=== PATIENT | male | born 1970 | race Caucasian/White ===

== ENCOUNTER 2022-02-21 11:45 | Inpatient (IN) | payer OTHER ==
[2022-02-21 15:48] VITALS: BMI 20.9
[2022-02-21] MEDS ORDERED: ACETAMINOPHEN 325 MG TABLET (FP) PO PRN (16:58)
[2022-02-21] MEDS ORDERED: IBUPROFEN 400 MG TABLET (FP) PO PRN (16:58)
[2022-02-21] MEDS ORDERED: MAG HYDROX/AL HYDROX/SIMETH 30 ML UNIT-DOSE CUP PO PRN (16:58)
[2022-02-21] MEDS ORDERED: MAGNESIUM HYDROX 2400MG/30ML ORAL SUSPENSION 30 ML CUP PO PRN (16:58)
[2022-02-21] MEDS ORDERED: LOPERAMIDE HCL 2 MG CAPSULE PO PRN (16:58)
[2022-02-21] MEDS ORDERED: MAGNESIUM CITRATE 300 ML BOTTLE PO PRN (16:58)
[2022-02-21] MEDS ORDERED: guaiFENesin 200 MG/10 ML 10 ML UNIT-DOSE CUPS PO PRN (16:58)
[2022-02-21] MEDS ORDERED: P-EPHED 60MG/TRIPROLIDI 2.5MG TABLET PO PRN (16:58)
[2022-02-21] MEDS ORDERED: TUBERCULIN PPD 5 TU/0.1ML VIAL ID ONE (19:08)
[2022-02-21] MEDS: THIAMINE HCL 100 MG TABLET (FP) PO SCH (21:58)
[2022-02-21] MEDS: BACITRACIN 0.9 GM PACKET TP SCH (21:58)
[2022-02-21] MEDS: hydrOXYzine PAMOATE 25 MG CAPSULE (FP) PO PRN (21:58)
[2022-02-22] MEDS: BACITRACIN 0.9 GM PACKET TP SCH ×2 (09:51→21:15)
[2022-02-22] MEDS: PRENATAL VITAMINS W/ FOLIC ACID TABLET (FP) PO SCH (09:51)
[2022-02-22] MEDS: BICTEGRAV/EMTRICIT/TENOFOV (BIKTARVY) 50-200-25 MG TABLET PO SCH (09:51)
[2022-02-22 10:17] LABS: HEMATOCRIT 44.7 % (35.4-49); HEMOGLOBIN 14.8 GM/dL (11.7-16.9); MCH 29.8 pg (25.7-33.7); MCHC 33.1 g/dl (32.0-35.9); MEAN CELL VOLUME 90.2 fl (80-96); MEAN PLT VOLUME 8.7 fl (7.5-11.1); PLATELET COUNT 244 10^3/uL (134-434); RBC 4.95 M/mm3 (4.00-5.60); RDW 14.9 % (11.9-15.9); WHITE BLOOD COUNT 6.1 K/mm3 (4.0-10.0)
[2022-02-22 10:18] LABS: CALCIUM 9.6 mg/dL (8.5-10.1)
[2022-02-22 10:19] LABS: ALBUMIN 3.6 g/dl (3.4-5.0)
[2022-02-22 10:23] LABS: BILIRUBIN,TOTAL 0.3 mg/dL (0.2-1); TOT PROT 6.9 g/dl (6.4-8.2)
[2022-02-22 10:39] LABS: SYPHILIS W/ RPR CONF NON-REACTIVE (NONREACTIVE)
[2022-02-22] MEDS: MELATONIN 5 MG TABLETS PO PRN (21:15)
[2022-02-22] MEDS: hydrOXYzine PAMOATE 25 MG CAPSULE (FP) PO PRN (21:15)
[2022-02-22] MEDS: THIAMINE HCL 100 MG TABLET (FP) PO SCH (21:15)
[2022-02-23] MEDS: BACITRACIN 0.9 GM PACKET TP SCH ×2 (09:42→21:25)
[2022-02-23] MEDS: PRENATAL VITAMINS W/ FOLIC ACID TABLET (FP) PO SCH (09:42)
[2022-02-23] MEDS: BICTEGRAV/EMTRICIT/TENOFOV (BIKTARVY) 50-200-25 MG TABLET PO SCH (09:42)
[2022-02-23] MEDS: MELATONIN 5 MG TABLETS PO PRN (21:25)
[2022-02-23] MEDS: THIAMINE HCL 100 MG TABLET (FP) PO SCH (21:25)
[2022-02-24] MEDS: PRENATAL VITAMINS W/ FOLIC ACID TABLET (FP) PO SCH (09:44)
[2022-02-24] MEDS: BICTEGRAV/EMTRICIT/TENOFOV (BIKTARVY) 50-200-25 MG TABLET PO SCH (09:44)
[2022-02-24] MEDS: BACITRACIN 0.9 GM PACKET TP SCH ×2 (09:44→21:38)
[2022-02-24 11:14] LABS: EPI CELLS 3 /uL (0-25.1); HYALINE CASTS 0 /uL (0-3.1); URINE APPEARANCE CLEAR; URINE BACTERIA 6 /uL (0-1359); URINE BILIRUBIN NEGATIVE (NEGATIVE); URINE COLOR YELLOW; URINE GLUCOSE (UA) NEGATIVE (NEGATIVE); URINE KETONE NEGATIVE (NEGATIVE); URINE LEUK ESTERASE TRACE (NEGATIVE); URINE NITRITE NEGATIVE (NEGATIVE); URINE PROTEIN NEGATIVE (NEGATIVE); URINE RBC 1 /uL (0-23.9); URINE UROBILINOGEN 0.2 mg/dL (0.2-1.0); URINE WBC 16 /uL (0-25.8)
[2022-02-24] MEDS: THIAMINE HCL 100 MG TABLET (FP) PO SCH (21:37)
[2022-02-24] MEDS: hydrOXYzine PAMOATE 25 MG CAPSULE (FP) PO PRN (23:14)
[2022-02-24] MEDS: MELATONIN 5 MG TABLETS PO PRN (23:14)
[2022-02-25] MEDS: PRENATAL VITAMINS W/ FOLIC ACID TABLET (FP) PO SCH (09:41)
[2022-02-25] MEDS: BACITRACIN 0.9 GM PACKET TP SCH ×2 (09:41→21:11)
[2022-02-25] MEDS: BICTEGRAV/EMTRICIT/TENOFOV (BIKTARVY) 50-200-25 MG TABLET PO SCH (09:41)
[2022-02-25] MEDS: THIAMINE HCL 100 MG TABLET (FP) PO SCH (21:10)
[2022-02-25] MEDS: MELATONIN 5 MG TABLETS PO PRN (21:10)
[2022-02-25] MEDS: hydrOXYzine PAMOATE 25 MG CAPSULE (FP) PO PRN (21:11)
[2022-02-26] MEDS: PRENATAL VITAMINS W/ FOLIC ACID TABLET (FP) PO SCH (09:48)
[2022-02-26] MEDS: BACITRACIN 0.9 GM PACKET TP SCH ×2 (09:48→21:14)
[2022-02-26] MEDS: BICTEGRAV/EMTRICIT/TENOFOV (BIKTARVY) 50-200-25 MG TABLET PO SCH (09:48)
[2022-02-26] MEDS: THIAMINE HCL 100 MG TABLET (FP) PO SCH (21:14)
[2022-02-26] MEDS: MELATONIN 5 MG TABLETS PO PRN (21:14)
[2022-02-27 06:49] VITALS: RESP 20
[2022-02-27] MEDS: BACITRACIN 0.9 GM PACKET TP SCH ×2 (10:12→21:22)
[2022-02-27] MEDS: PRENATAL VITAMINS W/ FOLIC ACID TABLET (FP) PO SCH (10:12)
[2022-02-27] MEDS: BICTEGRAV/EMTRICIT/TENOFOV (BIKTARVY) 50-200-25 MG TABLET PO SCH (10:12)
[2022-02-27] MEDS: hydrOXYzine PAMOATE 25 MG CAPSULE (FP) PO PRN (21:22)
[2022-02-27] MEDS: THIAMINE HCL 100 MG TABLET (FP) PO SCH (21:22)
[2022-02-27] MEDS: MELATONIN 5 MG TABLETS PO PRN (21:22)
[2022-02-28] MEDS: BACITRACIN 0.9 GM PACKET TP SCH ×2 (09:50→21:11)
[2022-02-28] MEDS: BICTEGRAV/EMTRICIT/TENOFOV (BIKTARVY) 50-200-25 MG TABLET PO SCH (09:50)
[2022-02-28] MEDS: PRENATAL VITAMINS W/ FOLIC ACID TABLET (FP) PO SCH (09:50)
[2022-02-28] MEDS: DOXYCYCLINE HYCLATE 100 MG TABLET PO SCH (18:01)
[2022-02-28] MEDS: THIAMINE HCL 100 MG TABLET (FP) PO SCH (21:10)
[2022-02-28] MEDS: MELATONIN 5 MG TABLETS PO PRN (21:10)
[2022-02-28] MEDS: hydrOXYzine PAMOATE 25 MG CAPSULE (FP) PO PRN (21:11)
[2022-02-28] MEDS: NICOTINE 10 MG CARTRIDGE (INHALER) IH PRN (21:11)
[2022-03-01] MEDS: DOXYCYCLINE HYCLATE 100 MG TABLET PO SCH ×2 (07:07→18:05)
[2022-03-01] MEDS: BICTEGRAV/EMTRICIT/TENOFOV (BIKTARVY) 50-200-25 MG TABLET PO SCH (09:56)
[2022-03-01] MEDS: BACITRACIN 0.9 GM PACKET TP SCH ×2 (09:57→22:54)
[2022-03-01] MEDS: PRENATAL VITAMINS W/ FOLIC ACID TABLET (FP) PO SCH (09:57)
[2022-03-01] MEDS: NICOTINE 10 MG CARTRIDGE (INHALER) IH PRN (12:49)
[2022-03-01] MEDS: THIAMINE HCL 100 MG TABLET (FP) PO SCH (21:53)
[2022-03-01] MEDS: MELATONIN 5 MG TABLETS PO PRN (21:53)
[2022-03-02] MEDS: DOXYCYCLINE HYCLATE 100 MG TABLET PO SCH ×2 (07:02→19:35)
[2022-03-02] MEDS: BACITRACIN 0.9 GM PACKET TP SCH ×2 (09:48→21:29)
[2022-03-02] MEDS: PRENATAL VITAMINS W/ FOLIC ACID TABLET (FP) PO SCH (09:48)
[2022-03-02] MEDS: BICTEGRAV/EMTRICIT/TENOFOV (BIKTARVY) 50-200-25 MG TABLET PO SCH (09:48)
[2022-03-02] MEDS: NICOTINE 10 MG CARTRIDGE (INHALER) IH PRN (12:21)
[2022-03-02] MEDS: MELATONIN 5 MG TABLETS PO PRN (21:29)
[2022-03-02] MEDS: hydrOXYzine PAMOATE 25 MG CAPSULE (FP) PO PRN (21:29)
[2022-03-02] MEDS: THIAMINE HCL 100 MG TABLET (FP) PO SCH (21:29)
[2022-03-03] MEDS: DOXYCYCLINE HYCLATE 100 MG TABLET PO SCH ×2 (06:26→17:20)
[2022-03-03] MEDS: BICTEGRAV/EMTRICIT/TENOFOV (BIKTARVY) 50-200-25 MG TABLET PO SCH (09:48)
[2022-03-03] MEDS: BACITRACIN 0.9 GM PACKET TP SCH ×2 (09:48→21:27)
[2022-03-03] MEDS: PRENATAL VITAMINS W/ FOLIC ACID TABLET (FP) PO SCH (09:49)
[2022-03-03] MEDS: THIAMINE HCL 100 MG TABLET (FP) PO SCH (21:26)
[2022-03-03] MEDS: MELATONIN 5 MG TABLETS PO PRN (21:26)
[2022-03-03] MEDS: hydrOXYzine PAMOATE 25 MG CAPSULE (FP) PO PRN (21:27)
[2022-03-04] MEDS: DOXYCYCLINE HYCLATE 100 MG TABLET PO SCH ×2 (06:27→17:47)
[2022-03-04] MEDS: NICOTINE 10 MG CARTRIDGE (INHALER) IH PRN (08:32)
[2022-03-04] MEDS: BICTEGRAV/EMTRICIT/TENOFOV (BIKTARVY) 50-200-25 MG TABLET PO SCH (09:56)
[2022-03-04] MEDS: PRENATAL VITAMINS W/ FOLIC ACID TABLET (FP) PO SCH (09:56)
[2022-03-04] MEDS: BACITRACIN 0.9 GM PACKET TP SCH ×2 (09:56→21:21)
[2022-03-04] MEDS: MELATONIN 5 MG TABLETS PO PRN (21:20)
[2022-03-04] MEDS: THIAMINE HCL 100 MG TABLET (FP) PO SCH (21:21)
[2022-03-05 06:54] VITALS: BP 109/69; PULSE 63; TEMP 97
[2022-03-05] MEDS: DOXYCYCLINE HYCLATE 100 MG TABLET PO SCH (06:58)
[2022-03-05] MEDS: NICOTINE 10 MG CARTRIDGE (INHALER) IH PRN (06:59)
[2022-03-05] MEDS: PRENATAL VITAMINS W/ FOLIC ACID TABLET (FP) PO SCH (09:02)
[2022-03-05] MEDS: BACITRACIN 0.9 GM PACKET TP SCH (09:02)
[2022-03-05] MEDS: BICTEGRAV/EMTRICIT/TENOFOV (BIKTARVY) 50-200-25 MG TABLET PO SCH (09:02)
== END 2022-03-05 09:08 | disposition home or self-care (01) | DRG 772 ==
LOC: YASAS 11:45 → Y3E 16:55
PROVIDERS: ADMIT Allergy & Immunology; ATTEND Psychiatry & Neurology Pain Medicine
PROC: HZ42ZZZ Group Counseling for Substance Abuse Treatment, Cognitive-Behavioral (ICD-10-PCS; principal; 2022-02-21)
DX: F14.20 Cocaine dependence, uncomplicated (principal); F17.210 Nicotine dependence, cigarettes, uncomplicated; Z21 Asymptomatic human immunodeficiency virus [HIV] infection status; N48.89 Other specified disorders of penis; R30.0 Dysuria; R76.11 Nonspecific reaction to tuberculin skin test without active tuberculosis; Z62.810 Personal history of physical and sexual abuse in childhood
CPT/HCPCS: 36415; 71045-TC-FY; 80053; 81003; 85027; 86780; 86803; 87491; 87591; 87661; C9803-CS; U0003; U0005

== ENCOUNTER 2022-08-08 09:47 | Inpatient (IN) | payer OTHER ==
[2022-08-08 10:55] VITALS: BMI 22.3
[2022-08-08] MEDS ORDERED: hydrOXYzine PAMOATE 25 MG CAPSULE (FP) PO PRN (12:14)
[2022-08-08] MEDS ORDERED: ONDANSETRON *ODT* 4 MG TABLET SL PRN (12:14)
[2022-08-08] MEDS ORDERED: MAG HYDROX/AL HYDROX/SIMETH 30 ML UNIT-DOSE CUP PO PRN (12:14)
[2022-08-08] MEDS ORDERED: POLYETHYLENE GLYCOL (HEALTHYLAX) 3350 17 GM PACKET PO PRN (12:14)
[2022-08-08] MEDS ORDERED: BENZOCAINE/MENTHOL (CHLORASEPTIC ) LOZENGE MM PRN (12:14)
[2022-08-08] MEDS ORDERED: ACETAMINOPHEN 325 MG TABLET (FP) PO PRN ×2 (12:14)
[2022-08-08] MEDS ORDERED: METHOCARBAMOL 500 MG TABLET PO PRN (12:14)
[2022-08-08] MEDS ORDERED: MAGNESIUM HYDROX 2400MG/30ML ORAL SUSPENSION 30 ML CUP PO PRN (12:14)
[2022-08-08] MEDS ORDERED: IBUPROFEN 600 MG TABLET (FP) PO PRN (12:14)
[2022-08-08] MEDS ORDERED: IBUPROFEN 400 MG TABLET (FP) PO PRN (12:14)
[2022-08-08] MEDS ORDERED: BISMUTH SUBSALICYLATE 524 MG/30 ML PO PRN (12:14)
[2022-08-08] MEDS ORDERED: DICYCLOMINE HCL 10 MG CAPSULE PO PRN (12:14)
[2022-08-08] MEDS ORDERED: LOPERAMIDE HCL 2 MG CAPSULE PO PRN (12:14)
[2022-08-08] MEDS: AMOX TR/POT CLAV 875MG/125MG TABLETS (FP) PO SCH (17:27)
[2022-08-08] MEDS ORDERED: MELATONIN 5 MG TABLETS PO SCH (22:00)
[2022-08-08] MEDS ORDERED: THIAMINE HCL 100 MG TABLET (FP) PO SCH (22:00)
[2022-08-09] MEDS: AMOX TR/POT CLAV 875MG/125MG TABLETS (FP) PO SCH (07:00)
[2022-08-09] MEDS ORDERED: BICTEGRAV/EMTRICIT/TENOFOV (BIKTARVY) 50-200-25 MG TABLET PO SCH (08:00)
[2022-08-09 09:36] VITALS: BP 98/64; PULSE 66; RESP 17; TEMP 98
[2022-08-09] MEDS ORDERED: PRENATAL VITAMINS W/ FOLIC ACID TABLET (FP) PO SCH (10:00)
[2022-08-09 11:36] LABS: HEMATOCRIT 41.1 % (35.4-49); HEMOGLOBIN 13.7 GM/dL (11.7-16.9); MCH 29.9 pg (25.7-33.7); MCHC 33.4 g/dl (32.0-35.9); MEAN CELL VOLUME 89.4 fl (80-96); MEAN PLT VOLUME 8.3 fl (7.5-11.1); PLATELET COUNT 209 10^3/uL (134-434); RBC 4.59 M/mm3 (4.00-5.60); RDW 13.4 % (11.9-15.9); WHITE BLOOD COUNT 4.2 K/mm3 (4.0-10.0)
[2022-08-09 12:31] LABS: BLOOD UREA NITROGEN 13.9 mg/dL (7-18)
[2022-08-09 12:34] LABS: BILIRUBIN,TOTAL 1.1 mg/dL (0.2-1); TOT PROT 7.2 g/dl (6.4-8.2)
[2022-08-09 12:35] LABS: CALCIUM 9.2 mg/dL (8.5-10.1)
[2022-08-09 12:36] LABS: ALBUMIN 3.5 g/dl (3.4-5.0); CREATININE 0.9 mg/dL (0.55-1.3)
== END 2022-08-09 12:58 | disposition other institution (70) | DRG 774 ==
LOC: YASAS 09:47 → Y3N 12:05
PROVIDERS: ADMIT Allergy & Immunology; ATTEND Surgery
PROC: HZ2ZZZZ Detoxification Services for Substance Abuse Treatment (ICD-10-PCS; principal; 2022-08-08)
DX: F10.230 Alcohol dependence with withdrawal, uncomplicated (principal); F14.20 Cocaine dependence, uncomplicated; F17.210 Nicotine dependence, cigarettes, uncomplicated; B20 Human immunodeficiency virus [HIV] disease; Z79.899 Other long term (current) drug therapy; K08.89 Other specified disorders of teeth and supporting structures; K05.10 Chronic gingivitis, plaque induced; Z86.59 Personal history of other mental and behavioral disorders
CPT/HCPCS: 36415; 80053; 85027; 86780; 87811; C9803-CS; U0003; U0005

== ENCOUNTER 2022-08-09 13:05 | Inpatient (IN) | payer OTHER ==
[2022-08-09] MEDS ORDERED: BENZOCAINE/MENTHOL (CHLORASEPTIC ) LOZENGE MM PRN (14:24)
[2022-08-09] MEDS ORDERED: MAG HYDROX/AL HYDROX/SIMETH 30 ML UNIT-DOSE CUP PO PRN (14:24)
[2022-08-09] MEDS ORDERED: guaiFENesin 200 MG/10 ML 10 ML UNIT-DOSE CUPS PO PRN (14:24)
[2022-08-09] MEDS ORDERED: MAGNESIUM HYDROX 2400MG/30ML ORAL SUSPENSION 30 ML CUP PO PRN (14:24)
[2022-08-09] MEDS ORDERED: P-EPHED 60MG/TRIPROLIDI 2.5MG TABLET PO PRN (14:24)
[2022-08-09] MEDS ORDERED: LOPERAMIDE HCL 2 MG CAPSULE PO PRN (14:24)
[2022-08-09] MEDS ORDERED: POLYETHYLENE GLYCOL (HEALTHYLAX) 3350 17 GM PACKET PO PRN (14:24)
[2022-08-09] MEDS ORDERED: IBUPROFEN 400 MG TABLET (FP) PO PRN (14:24)
[2022-08-09] MEDS ORDERED: NICOTINE 10 MG CARTRIDGE (INHALER) IH PRN (14:24)
[2022-08-09] MEDS ORDERED: ACETAMINOPHEN 325 MG TABLET (FP) PO PRN (14:24)
[2022-08-09] MEDS: AMOX TR/POT CLAV 875MG/125MG TABLETS (FP) PO SCH (17:24)
[2022-08-09] MEDS: THIAMINE HCL 100 MG TABLET (FP) PO SCH (21:23)
[2022-08-09] MEDS: QUEtiapine FUMARATE 50 MG TABLET PO PRN (21:23)
[2022-08-09] MEDS: hydrOXYzine PAMOATE 25 MG CAPSULE (FP) PO PRN (21:23)
[2022-08-09] MEDS ORDERED: MELATONIN 5 MG TABLETS PO SCH (22:00)
[2022-08-10] MEDS: AMOX TR/POT CLAV 875MG/125MG TABLETS (FP) PO SCH ×2 (07:02→16:55)
[2022-08-10] MEDS: BICTEGRAV/EMTRICIT/TENOFOV (BIKTARVY) 50-200-25 MG TABLET PO SCH (07:02)
[2022-08-10] MEDS: PRENATAL VITAMINS W/ FOLIC ACID TABLET (FP) PO SCH (09:49)
[2022-08-10] MEDS: NICOTINE 7 MG/24 HOURS TOPICAL PATCH TD SCH (09:50)
[2022-08-10] MEDS: THIAMINE HCL 100 MG TABLET (FP) PO SCH (21:27)
[2022-08-11] MEDS: BICTEGRAV/EMTRICIT/TENOFOV (BIKTARVY) 50-200-25 MG TABLET PO SCH (07:16)
[2022-08-11] MEDS: AMOX TR/POT CLAV 875MG/125MG TABLETS (FP) PO SCH ×2 (07:16→16:51)
[2022-08-11] MEDS: NICOTINE 7 MG/24 HOURS TOPICAL PATCH TD SCH (10:15)
[2022-08-11] MEDS: PRENATAL VITAMINS W/ FOLIC ACID TABLET (FP) PO SCH (10:15)
[2022-08-11] MEDS: THIAMINE HCL 100 MG TABLET (FP) PO SCH (21:20)
[2022-08-12] MEDS: AMOX TR/POT CLAV 875MG/125MG TABLETS (FP) PO SCH ×2 (07:04→18:41)
[2022-08-12] MEDS: BICTEGRAV/EMTRICIT/TENOFOV (BIKTARVY) 50-200-25 MG TABLET PO SCH (07:04)
[2022-08-12] MEDS: NICOTINE 7 MG/24 HOURS TOPICAL PATCH TD SCH (09:38)
[2022-08-12] MEDS: PRENATAL VITAMINS W/ FOLIC ACID TABLET (FP) PO SCH (09:38)
[2022-08-12] MEDS: hydrOXYzine PAMOATE 25 MG CAPSULE (FP) PO PRN (21:25)
[2022-08-12] MEDS: THIAMINE HCL 100 MG TABLET (FP) PO SCH (21:25)
[2022-08-13] MEDS: AMOX TR/POT CLAV 875MG/125MG TABLETS (FP) PO SCH ×2 (07:16→16:52)
[2022-08-13] MEDS: BICTEGRAV/EMTRICIT/TENOFOV (BIKTARVY) 50-200-25 MG TABLET PO SCH (07:16)
[2022-08-13] MEDS: PRENATAL VITAMINS W/ FOLIC ACID TABLET (FP) PO SCH (09:43)
[2022-08-13] MEDS: NICOTINE 7 MG/24 HOURS TOPICAL PATCH TD SCH (09:43)
[2022-08-13] MEDS: THIAMINE HCL 100 MG TABLET (FP) PO SCH (21:15)
[2022-08-13] MEDS: hydrOXYzine PAMOATE 25 MG CAPSULE (FP) PO PRN (21:15)
[2022-08-14] MEDS: BICTEGRAV/EMTRICIT/TENOFOV (BIKTARVY) 50-200-25 MG TABLET PO SCH (07:00)
[2022-08-14] MEDS: AMOX TR/POT CLAV 875MG/125MG TABLETS (FP) PO SCH ×2 (07:00→16:56)
[2022-08-14] MEDS: NICOTINE 7 MG/24 HOURS TOPICAL PATCH TD SCH (09:29)
[2022-08-14] MEDS: PRENATAL VITAMINS W/ FOLIC ACID TABLET (FP) PO SCH (09:29)
[2022-08-14] MEDS: THIAMINE HCL 100 MG TABLET (FP) PO SCH (21:42)
[2022-08-15] MEDS: AMOX TR/POT CLAV 875MG/125MG TABLETS (FP) PO SCH (07:08)
[2022-08-15] MEDS: BICTEGRAV/EMTRICIT/TENOFOV (BIKTARVY) 50-200-25 MG TABLET PO SCH (07:08)
[2022-08-15] MEDS: PRENATAL VITAMINS W/ FOLIC ACID TABLET (FP) PO SCH (09:55)
[2022-08-15] MEDS: NICOTINE 7 MG/24 HOURS TOPICAL PATCH TD SCH (09:55)
[2022-08-15] MEDS: THIAMINE HCL 100 MG TABLET (FP) PO SCH (21:25)
[2022-08-16] MEDS: BICTEGRAV/EMTRICIT/TENOFOV (BIKTARVY) 50-200-25 MG TABLET PO SCH (07:46)
[2022-08-16] MEDS: PRENATAL VITAMINS W/ FOLIC ACID TABLET (FP) PO SCH (09:52)
[2022-08-16] MEDS: NICOTINE 7 MG/24 HOURS TOPICAL PATCH TD SCH (09:52)
[2022-08-16] MEDS: THIAMINE HCL 100 MG TABLET (FP) PO SCH (21:24)
[2022-08-16] MEDS: hydrOXYzine PAMOATE 25 MG CAPSULE (FP) PO PRN (21:25)
[2022-08-16] MEDS: NICOTINE POLACRILEX 2 MG GUM BUC PRN (21:26)
[2022-08-17] MEDS: BICTEGRAV/EMTRICIT/TENOFOV (BIKTARVY) 50-200-25 MG TABLET PO SCH (07:08)
[2022-08-17] MEDS: PRENATAL VITAMINS W/ FOLIC ACID TABLET (FP) PO SCH (09:48)
[2022-08-17] MEDS: NICOTINE 7 MG/24 HOURS TOPICAL PATCH TD SCH (09:48)
[2022-08-17] MEDS: NICOTINE POLACRILEX 2 MG GUM BUC PRN ×2 (09:49→21:25)
[2022-08-17] MEDS: THIAMINE HCL 100 MG TABLET (FP) PO SCH (21:25)
[2022-08-17] MEDS: hydrOXYzine PAMOATE 25 MG CAPSULE (FP) PO PRN (21:25)
[2022-08-18] MEDS: NICOTINE POLACRILEX 2 MG GUM BUC PRN ×3 (06:29→21:29)
[2022-08-18] MEDS: BICTEGRAV/EMTRICIT/TENOFOV (BIKTARVY) 50-200-25 MG TABLET PO SCH (08:35)
[2022-08-18] MEDS: PRENATAL VITAMINS W/ FOLIC ACID TABLET (FP) PO SCH (09:36)
[2022-08-18] MEDS: NICOTINE 7 MG/24 HOURS TOPICAL PATCH TD SCH (09:36)
[2022-08-18] MEDS: hydrOXYzine PAMOATE 25 MG CAPSULE (FP) PO PRN (21:28)
[2022-08-18] MEDS: THIAMINE HCL 100 MG TABLET (FP) PO SCH (21:28)
[2022-08-19] MEDS: NICOTINE POLACRILEX 2 MG GUM BUC PRN ×2 (06:27→09:52)
[2022-08-19] MEDS: BICTEGRAV/EMTRICIT/TENOFOV (BIKTARVY) 50-200-25 MG TABLET PO SCH (07:04)
[2022-08-19 07:18] VITALS: RESP 18
[2022-08-19] MEDS: PRENATAL VITAMINS W/ FOLIC ACID TABLET (FP) PO SCH (09:52)
[2022-08-19] MEDS: NICOTINE 7 MG/24 HOURS TOPICAL PATCH TD SCH (09:52)
[2022-08-19] MEDS: THIAMINE HCL 100 MG TABLET (FP) PO SCH (21:48)
[2022-08-20] MEDS: NICOTINE POLACRILEX 2 MG GUM BUC PRN ×3 (06:28→21:28)
[2022-08-20] MEDS: BICTEGRAV/EMTRICIT/TENOFOV (BIKTARVY) 50-200-25 MG TABLET PO SCH (07:02)
[2022-08-20] MEDS: NICOTINE 7 MG/24 HOURS TOPICAL PATCH TD SCH (09:46)
[2022-08-20] MEDS: PRENATAL VITAMINS W/ FOLIC ACID TABLET (FP) PO SCH (09:46)
[2022-08-20] MEDS: THIAMINE HCL 100 MG TABLET (FP) PO SCH (21:26)
[2022-08-20] MEDS: QUEtiapine FUMARATE 50 MG TABLET PO PRN (21:27)
[2022-08-20] MEDS: hydrOXYzine PAMOATE 25 MG CAPSULE (FP) PO PRN (21:28)
[2022-08-21] MEDS: NICOTINE POLACRILEX 2 MG GUM BUC PRN (06:24)
[2022-08-21] MEDS: BICTEGRAV/EMTRICIT/TENOFOV (BIKTARVY) 50-200-25 MG TABLET PO SCH (07:07)
[2022-08-21 07:09] VITALS: BP 115/67; PULSE 68; TEMP 97.4
[2022-08-21] MEDS: PRENATAL VITAMINS W/ FOLIC ACID TABLET (FP) PO SCH (09:46)
[2022-08-21] MEDS: NICOTINE 7 MG/24 HOURS TOPICAL PATCH TD SCH (09:46)
== END 2022-08-21 09:50 | disposition home or self-care (01) | DRG 772 ==
LOC: YASAS 13:05 → Y5N 13:06
PROVIDERS: ADMIT Allergy & Immunology; ATTEND Allergy & Immunology
PROC: HZ42ZZZ Group Counseling for Substance Abuse Treatment, Cognitive-Behavioral (ICD-10-PCS; principal; 2022-08-09)
DX: F10.20 Alcohol dependence, uncomplicated (principal); F14.20 Cocaine dependence, uncomplicated; F17.210 Nicotine dependence, cigarettes, uncomplicated; F32.A Depression, unspecified; F43.10 Post-traumatic stress disorder, unspecified; B20 Human immunodeficiency virus [HIV] disease; Z79.899 Other long term (current) drug therapy

== ENCOUNTER 2022-11-28 13:04 | Inpatient (IN) | payer OTHER ==
[2022-11-28 14:01] VITALS: BMI 23.0
[2022-11-28] MEDS ORDERED: BENZONATATE 200 MG CAPSULE PO PRN (15:23)
[2022-11-28] MEDS ORDERED: ACETAMINOPHEN 325 MG TABLET (FP) PO PRN (15:23)
[2022-11-28] MEDS ORDERED: COLLOIDAL OATMEAL 1 BAR EACH TP PRN (15:23)
[2022-11-28] MEDS ORDERED: LOPERAMIDE HCL 2 MG CAPSULE PO PRN (15:23)
[2022-11-28] MEDS ORDERED: hydrOXYzine PAMOATE 25 MG CAPSULE (FP) PO PRN (15:23)
[2022-11-28] MEDS ORDERED: MAGNESIUM HYDROX 2400MG/30ML ORAL SUSPENSION 30 ML CUP PO PRN (15:23)
[2022-11-28] MEDS ORDERED: IBUPROFEN 400 MG TABLET (FP) PO PRN (15:23)
[2022-11-28] MEDS ORDERED: BENZOCAINE/MENTHOL (CHLORASEPTIC ) LOZENGE MM PRN (15:23)
[2022-11-28] MEDS ORDERED: POLYETHYLENE GLYCOL (HEALTHYLAX) 3350 17 GM PACKET PO PRN (15:23)
[2022-11-28] MEDS ORDERED: guaiFENesin 600 MG TABLET.ER (FP) PO PRN (15:23)
[2022-11-28] MEDS ORDERED: MAG HYDROX/AL HYDROX/SIMETH 30 ML UNIT-DOSE CUP PO PRN (15:23)
[2022-11-28] MEDS ORDERED: AMMONIUM LACTATE 12% LOTION 225 GM BOTTLE TP PRN (15:23)
[2022-11-28] MEDS ORDERED: P-EPHED 60MG/TRIPROLIDI 2.5MG TABLET PO PRN (15:23)
[2022-11-28] MEDS ORDERED: NICOTINE 10 MG CARTRIDGE (INHALER) IH PRN (15:23)
[2022-11-28] MEDS: BACITRACIN 0.9 GM PACKET TP SCH ×2 (17:39→21:09)
[2022-11-28] MEDS: MELATONIN 5 MG TABLETS PO SCH (21:09)
[2022-11-28] MEDS: THIAMINE HCL 100 MG TABLET (FP) PO SCH (21:09)
[2022-11-29] MEDS: BACITRACIN 0.9 GM PACKET TP SCH ×2 (09:36→21:45)
[2022-11-29] MEDS: PRENATAL VITAMINS W/ FOLIC ACID TABLET (FP) PO SCH (09:36)
[2022-11-29] MEDS: BICTEGRAV/EMTRICIT/TENOFOV (BIKTARVY) 50-200-25 MG TABLET PO SCH (09:36)
[2022-11-29 11:06] LABS: HEMOGLOBIN 14.4 GM/dL (11.7-16.9); MCH 29.8 pg (25.7-33.7); MCHC 33.6 g/dl (32.0-35.9); MEAN CELL VOLUME 88.8 fl (80-96); MEAN PLT VOLUME 8.2 fl (7.5-11.1); PLATELET COUNT 201 10^3/uL (134-434); RBC 4.84 M/mm3 (4.00-5.60); RDW 14.1 % (11.9-15.9); WHITE BLOOD COUNT 3.9 K/mm3 (4.0-10.0)
[2022-11-29 11:07] LABS: POTASSIUM 3.9 mmol/L (3.5-5.1)
[2022-11-29 11:16] LABS: ALBUMIN 3.3 g/dl (3.4-5.0); BLOOD UREA NITROGEN 10.3 mg/dL (7-18); CALCIUM 9.1 mg/dL (8.5-10.1)
[2022-11-29 11:19] LABS: CREATININE 0.9 mg/dL (0.55-1.3)
[2022-11-29 11:20] LABS: BILIRUBIN,TOTAL 0.6 mg/dL (0.2-1); TOT PROT 6.5 g/dl (6.4-8.2)
[2022-11-29 15:44] LABS: PH,URINE 7.5 (5.0-8.0); URINE APPEARANCE TURBID; URINE BILIRUBIN NEGATIVE (NEGATIVE); URINE COLOR YELLOW; URINE GLUCOSE (UA) NEGATIVE (NEGATIVE); URINE KETONE NEGATIVE (NEGATIVE); URINE LEUK ESTERASE NEGATIVE (NEGATIVE); URINE NITRITE NEGATIVE (NEGATIVE); URINE PROTEIN NEGATIVE (NEGATIVE); URINE UROBILINOGEN 0.2 mg/dL (0.2-1.0)
[2022-11-29] MEDS: MELATONIN 5 MG TABLETS PO SCH (21:46)
[2022-11-29] MEDS: THIAMINE HCL 100 MG TABLET (FP) PO SCH (21:46)
[2022-11-30] MEDS: BICTEGRAV/EMTRICIT/TENOFOV (BIKTARVY) 50-200-25 MG TABLET PO SCH (09:48)
[2022-11-30] MEDS: BACITRACIN 0.9 GM PACKET TP SCH ×2 (09:48→21:14)
[2022-11-30] MEDS: PRENATAL VITAMINS W/ FOLIC ACID TABLET (FP) PO SCH (09:48)
[2022-11-30] MEDS: NICOTINE POLACRILEX 2 MG GUM BUC PRN ×2 (09:48→21:15)
[2022-11-30] MEDS: MELATONIN 5 MG TABLETS PO SCH (21:14)
[2022-11-30] MEDS: THIAMINE HCL 100 MG TABLET (FP) PO SCH (21:14)
[2022-12-01 07:04] VITALS: RESP 18
[2022-12-01] MEDS: BICTEGRAV/EMTRICIT/TENOFOV (BIKTARVY) 50-200-25 MG TABLET PO SCH (09:34)
[2022-12-01] MEDS: PRENATAL VITAMINS W/ FOLIC ACID TABLET (FP) PO SCH (09:34)
[2022-12-01] MEDS: BACITRACIN 0.9 GM PACKET TP SCH ×2 (09:34→21:11)
[2022-12-01] MEDS: THIAMINE HCL 100 MG TABLET (FP) PO SCH (21:11)
[2022-12-01] MEDS: MELATONIN 5 MG TABLETS PO SCH (21:11)
[2022-12-02] MEDS: BACITRACIN 0.9 GM PACKET TP SCH ×2 (09:29→21:17)
[2022-12-02] MEDS: PRENATAL VITAMINS W/ FOLIC ACID TABLET (FP) PO SCH (09:29)
[2022-12-02] MEDS: BICTEGRAV/EMTRICIT/TENOFOV (BIKTARVY) 50-200-25 MG TABLET PO SCH (09:29)
[2022-12-02] MEDS: NICOTINE POLACRILEX 2 MG GUM BUC PRN (09:30)
[2022-12-02] MEDS: IBUPROFEN 600 MG TABLET (FP) PO PRN (10:45)
[2022-12-02] MEDS ORDERED: BENZOCAINE 20 % GEL TUBE MM PRN (13:01)
[2022-12-02] MEDS: MELATONIN 5 MG TABLETS PO SCH (21:16)
[2022-12-02] MEDS: THIAMINE HCL 100 MG TABLET (FP) PO SCH (21:16)
[2022-12-03] MEDS: PRENATAL VITAMINS W/ FOLIC ACID TABLET (FP) PO SCH (09:46)
[2022-12-03] MEDS: BACITRACIN 0.9 GM PACKET TP SCH ×2 (09:48→21:16)
[2022-12-03] MEDS: BICTEGRAV/EMTRICIT/TENOFOV (BIKTARVY) 50-200-25 MG TABLET PO SCH (09:48)
[2022-12-03] MEDS: IBUPROFEN 600 MG TABLET (FP) PO PRN (09:48)
[2022-12-03] MEDS: NICOTINE POLACRILEX 2 MG GUM BUC PRN (09:50)
[2022-12-03] MEDS: MELATONIN 5 MG TABLETS PO SCH (21:16)
[2022-12-03] MEDS: THIAMINE HCL 100 MG TABLET (FP) PO SCH (21:16)
[2022-12-04] MEDS: BICTEGRAV/EMTRICIT/TENOFOV (BIKTARVY) 50-200-25 MG TABLET PO SCH (09:34)
[2022-12-04] MEDS: BACITRACIN 0.9 GM PACKET TP SCH ×2 (09:34→21:39)
[2022-12-04] MEDS: PRENATAL VITAMINS W/ FOLIC ACID TABLET (FP) PO SCH (09:34)
[2022-12-04] MEDS: NICOTINE POLACRILEX 2 MG GUM BUC PRN (09:36)
[2022-12-04] MEDS ORDERED: LIDOCAINE HCL 2% JELLY (30 ML/TUBE) TP PRN (11:38)
[2022-12-04] MEDS ORDERED: DOCUSATE SODIUM 100 MG CAPSULE (FP) PO PRN (12:29)
[2022-12-04] MEDS ORDERED: LACTULOSE 20 GM/30 ML UDC (FOR ORAL USE ONLY) PO PRN (12:29)
[2022-12-04] MEDS: valACYclovir HCL 500 MG TABLET (FP) PO SCH ×2 (12:42→21:38)
[2022-12-04 17:16] LABS: URINE APPEARANCE CLEAR; URINE BILIRUBIN NEGATIVE (NEGATIVE); URINE COLOR YELLOW; URINE GLUCOSE (UA) NEGATIVE (NEGATIVE); URINE KETONE NEGATIVE (NEGATIVE); URINE LEUK ESTERASE NEGATIVE (NEGATIVE); URINE NITRITE NEGATIVE (NEGATIVE); URINE PROTEIN NEGATIVE (NEGATIVE); URINE UROBILINOGEN 0.2 mg/dL (0.2-1.0)
[2022-12-04] MEDS: THIAMINE HCL 100 MG TABLET (FP) PO SCH (21:39)
[2022-12-04] MEDS: MELATONIN 5 MG TABLETS PO SCH (21:39)
[2022-12-05] MEDS: PRENATAL VITAMINS W/ FOLIC ACID TABLET (FP) PO SCH (09:37)
[2022-12-05] MEDS: BACITRACIN 0.9 GM PACKET TP SCH ×2 (09:37→21:45)
[2022-12-05] MEDS: valACYclovir HCL 500 MG TABLET (FP) PO SCH ×2 (09:37→21:45)
[2022-12-05] MEDS: BICTEGRAV/EMTRICIT/TENOFOV (BIKTARVY) 50-200-25 MG TABLET PO SCH (09:38)
[2022-12-05] MEDS: NICOTINE POLACRILEX 2 MG GUM BUC PRN (09:39)
[2022-12-05] MEDS: THIAMINE HCL 100 MG TABLET (FP) PO SCH (21:46)
[2022-12-05] MEDS: MELATONIN 5 MG TABLETS PO SCH (21:46)
[2022-12-06 07:03] VITALS: BP 108/69; PULSE 89; TEMP 97.2
[2022-12-06] MEDS: valACYclovir HCL 500 MG TABLET (FP) PO SCH (09:25)
[2022-12-06] MEDS: BACITRACIN 0.9 GM PACKET TP SCH (09:25)
[2022-12-06] MEDS: PRENATAL VITAMINS W/ FOLIC ACID TABLET (FP) PO SCH (09:25)
[2022-12-06] MEDS: BICTEGRAV/EMTRICIT/TENOFOV (BIKTARVY) 50-200-25 MG TABLET PO SCH (09:25)
[2022-12-06] MEDS: NICOTINE POLACRILEX 2 MG GUM BUC PRN (09:26)
== END 2022-12-06 09:35 | disposition home or self-care (01) | DRG 772 ==
LOC: YASAS 13:04 → Y5N 16:48
PROVIDERS: ADMIT Allergy & Immunology; ATTEND Psychiatry & Neurology Pain Medicine
PROC: HZ42ZZZ Group Counseling for Substance Abuse Treatment, Cognitive-Behavioral (ICD-10-PCS; principal; 2022-11-28)
DX: F14.20 Cocaine dependence, uncomplicated (principal); F15.20 Other stimulant dependence, uncomplicated; F17.210 Nicotine dependence, cigarettes, uncomplicated; F43.10 Post-traumatic stress disorder, unspecified; F32.A Depression, unspecified; B20 Human immunodeficiency virus [HIV] disease; A60.9 Anogenital herpesviral infection, unspecified
CPT/HCPCS: 36415; 73070-TC-RT-FY; 80053; 81003; 85027; 86695; 86696; 86780; 86803; 87086; 87491; 87591

== ENCOUNTER 2023-01-31 17:26 | Inpatient (IN) | payer OTHER ==
[2023-01-31 19:43] VITALS: BMI 25.0
[2023-01-31] MEDS ORDERED: BISMUTH SUBSALICYLATE 524 MG/30 ML PO PRN (20:55)
[2023-01-31] MEDS ORDERED: MAG HYDROX/AL HYDROX/SIMETH 30 ML UNIT-DOSE CUP PO PRN (20:55)
[2023-01-31] MEDS ORDERED: BENZOCAINE/MENTHOL (CHLORASEPTIC ) LOZENGE MM PRN (20:55)
[2023-01-31] MEDS ORDERED: ONDANSETRON *ODT* 4 MG TABLET SL PRN (20:55)
[2023-01-31] MEDS ORDERED: IBUPROFEN 600 MG TABLET (FP) PO PRN (20:55)
[2023-01-31] MEDS ORDERED: P-EPHED 60MG/TRIPROLIDI 2.5MG TABLET PO PRN (20:55)
[2023-01-31] MEDS ORDERED: ACETAMINOPHEN 325 MG TABLET (FP) PO PRN (20:55)
[2023-01-31] MEDS ORDERED: DICYCLOMINE HCL 10 MG CAPSULE PO PRN (20:55)
[2023-01-31] MEDS ORDERED: guaiFENesin 600 MG TABLET.ER (FP) PO PRN (20:55)
[2023-01-31] MEDS ORDERED: NICOTINE POLACRILEX 2 MG GUM BUC PRN (20:55)
[2023-01-31] MEDS ORDERED: hydrOXYzine PAMOATE 25 MG CAPSULE (FP) PO PRN (20:55)
[2023-01-31] MEDS ORDERED: NALOXONE HCL 0.4 MG/ML VIAL IM PRN (20:55)
[2023-01-31] MEDS ORDERED: NALOXONE HCL (KLOXXADO) 8 MG SPRAY NS PRN (20:55)
[2023-01-31] MEDS ORDERED: POLYETHYLENE GLYCOL (HEALTHYLAX) 3350 17 GM PACKET PO PRN (20:55)
[2023-01-31] MEDS ORDERED: IBUPROFEN 400 MG TABLET (FP) PO PRN (20:55)
[2023-01-31] MEDS ORDERED: MAGNESIUM HYDROX 2400MG/30ML ORAL SUSPENSION 30 ML CUP PO PRN (20:55)
[2023-01-31] MEDS ORDERED: LOPERAMIDE HCL 2 MG CAPSULE PO PRN (20:55)
[2023-01-31] MEDS ORDERED: BENZONATATE 200 MG CAPSULE PO PRN (20:55)
[2023-01-31] MEDS: THIAMINE HCL 100 MG TABLET (FP) PO SCH (22:53)
[2023-01-31] MEDS: MELATONIN 5 MG TABLETS PO SCH (22:53)
[2023-01-31] MEDS: METHOCARBAMOL 500 MG TABLET PO PRN (22:54)
[2023-02-01] MEDS: PRENATAL VITAMINS W/ FOLIC ACID TABLET (FP) PO SCH (09:42)
[2023-02-01 11:42] LABS: HEMATOCRIT 38.6 % (35.4-49); HEMOGLOBIN 13.1 GM/dL (11.7-16.9); MCH 29.6 pg (25.7-33.7); MCHC 33.8 g/dl (32.0-35.9); MEAN CELL VOLUME 87.4 fl (80-96); PLATELET COUNT 197 10^3/uL (134-434); RBC 4.42 M/mm3 (4.00-5.60); RDW 13.3 % (11.9-15.9)
[2023-02-01 12:08] LABS: POTASSIUM 4.6 mmol/L (3.5-5.1)
[2023-02-01 12:16] LABS: CALCIUM 8.9 mg/dL (8.5-10.1)
[2023-02-01 12:17] LABS: ALBUMIN 3.4 g/dl (3.4-5.0)
[2023-02-01 12:20] LABS: CREATININE 0.8 mg/dL (0.55-1.3)
[2023-02-01 12:21] LABS: BILIRUBIN,TOTAL 0.5 mg/dL (0.2-1); TOT PROT 6.9 g/dl (6.4-8.2)
[2023-02-01] MEDS: METHOCARBAMOL 500 MG TABLET PO PRN (22:40)
[2023-02-01] MEDS: MELATONIN 5 MG TABLETS PO SCH (22:40)
[2023-02-01] MEDS: THIAMINE HCL 100 MG TABLET (FP) PO SCH (22:41)
[2023-02-02] MEDS: PRENATAL VITAMINS W/ FOLIC ACID TABLET (FP) PO SCH (10:16)
[2023-02-02] MEDS ORDERED: BICTEGRAV/EMTRICIT/TENOFOV (BIKTARVY) 50-200-25 MG TABLET PO SCH (14:52)
[2023-02-02] MEDS: THIAMINE HCL 100 MG TABLET (FP) PO SCH (22:30)
[2023-02-02] MEDS: valACYclovir HCL 500 MG TABLET (FP) PO SCH (22:32)
[2023-02-02] MEDS: MELATONIN 5 MG TABLETS PO SCH (22:33)
[2023-02-03] MEDS: PRENATAL VITAMINS W/ FOLIC ACID TABLET (FP) PO SCH (09:07)
[2023-02-03 09:26] VITALS: BP 125/82; PULSE 83; RESP 19; TEMP 97.1
[2023-02-03] MEDS: valACYclovir HCL 500 MG TABLET (FP) PO SCH (09:52)
[2023-02-03] MEDS ORDERED: BICTEGRAV/EMTRICIT/TENOFOV (BIKTARVY) 50-200-25 MG TABLET PO SCH (10:00)
== END 2023-02-03 09:50 | disposition home or self-care (01) | DRG 773 ==
LOC: YASAS 17:26 → Y6N 21:52
PROVIDERS: ADMIT Allergy & Immunology; ATTEND Allergy & Immunology
PROC: HZ2ZZZZ Detoxification Services for Substance Abuse Treatment (ICD-10-PCS; principal; 2023-01-31)
DX: F11.20 Opioid dependence, uncomplicated (principal); F10.20 Alcohol dependence, uncomplicated; F14.20 Cocaine dependence, uncomplicated; F17.210 Nicotine dependence, cigarettes, uncomplicated; Z21 Asymptomatic human immunodeficiency virus [HIV] infection status
CPT/HCPCS: 36415; 80053; 85027; 86780; 87635

== ENCOUNTER 2023-02-06 11:45 | Inpatient (IN) | payer OTHER ==
[2023-02-06 11:57] VITALS: BMI 22.8
[2023-02-06] MEDS ORDERED: METHOCARBAMOL 500 MG TABLET PO PRN (12:37)
[2023-02-06] MEDS ORDERED: ACETAMINOPHEN 325 MG TABLET (FP) PO PRN (12:37)
[2023-02-06] MEDS ORDERED: IBUPROFEN 600 MG TABLET (FP) PO PRN (12:37)
[2023-02-06] MEDS ORDERED: COLLOIDAL OATMEAL 1 BAR EACH TP PRN (12:37)
[2023-02-06] MEDS ORDERED: BENZOCAINE/MENTHOL (CHLORASEPTIC ) LOZENGE MM PRN (12:37)
[2023-02-06] MEDS ORDERED: MAG HYDROX/AL HYDROX/SIMETH 30 ML UNIT-DOSE CUP PO PRN (12:37)
[2023-02-06] MEDS ORDERED: guaiFENesin 600 MG TABLET.ER (FP) PO PRN (12:37)
[2023-02-06] MEDS ORDERED: BENZONATATE 200 MG CAPSULE PO PRN (12:37)
[2023-02-06] MEDS ORDERED: AMMONIUM LACTATE 12% LOTION 225 GM BOTTLE TP PRN (12:37)
[2023-02-06] MEDS ORDERED: hydrOXYzine PAMOATE 25 MG CAPSULE (FP) PO PRN (12:37)
[2023-02-06] MEDS ORDERED: MAGNESIUM HYDROX 2400MG/30ML ORAL SUSPENSION 30 ML CUP PO PRN (12:37)
[2023-02-06] MEDS ORDERED: POLYETHYLENE GLYCOL (HEALTHYLAX) 3350 17 GM PACKET PO PRN (12:37)
[2023-02-06] MEDS ORDERED: P-EPHED 60MG/TRIPROLIDI 2.5MG TABLET PO PRN (12:37)
[2023-02-06] MEDS ORDERED: IBUPROFEN 400 MG TABLET (FP) PO PRN (12:37)
[2023-02-06] MEDS ORDERED: LOPERAMIDE HCL 2 MG CAPSULE PO PRN (12:37)
[2023-02-06] MEDS ORDERED: NICOTINE POLACRILEX 2 MG GUM BUC PRN (12:37)
[2023-02-06] MEDS: THIAMINE HCL 100 MG TABLET (FP) PO SCH (21:53)
[2023-02-06] MEDS: MELATONIN 5 MG TABLETS PO SCH (21:53)
[2023-02-07] MEDS: PRENATAL VITAMINS W/ FOLIC ACID TABLET (FP) PO SCH (09:52)
[2023-02-07] MEDS ORDERED: PNEUMOC 20-VAL CONJ-DIP CRM/PF 0.5 ML SYRINGE IM ONE (12:00)
[2023-02-07] MEDS: BICTEGRAV/EMTRICIT/TENOFOV (BIKTARVY) 50-200-25 MG TABLET PO SCH (14:11)
[2023-02-07] MEDS: THIAMINE HCL 100 MG TABLET (FP) PO SCH (22:03)
[2023-02-07] MEDS: MELATONIN 5 MG TABLETS PO SCH (22:03)
[2023-02-08 07:05] VITALS: BP 101/71; PULSE 66; RESP 18; TEMP 97.3
[2023-02-08] MEDS: BICTEGRAV/EMTRICIT/TENOFOV (BIKTARVY) 50-200-25 MG TABLET PO SCH (07:24)
[2023-02-08] MEDS: PRENATAL VITAMINS W/ FOLIC ACID TABLET (FP) PO SCH (09:57)
== END 2023-02-08 07:20 | disposition left against medical advice (07) | DRG 770 ==
LOC: YASAS 11:45 → Y3W 14:53
PROVIDERS: ADMIT Allergy & Immunology; ATTEND Psychiatry & Neurology Pain Medicine
PROC: HZ42ZZZ Group Counseling for Substance Abuse Treatment, Cognitive-Behavioral (ICD-10-PCS; principal; 2023-02-06)
DX: F11.20 Opioid dependence, uncomplicated (principal); F14.20 Cocaine dependence, uncomplicated; F10.20 Alcohol dependence, uncomplicated; F17.210 Nicotine dependence, cigarettes, uncomplicated
CPT/HCPCS: 87635; 87811

== ENCOUNTER 2023-02-21 11:19 | Inpatient (IN) | payer OTHER ==
[2023-02-21 11:53] VITALS: BMI 21.6
[2023-02-21] MEDS ORDERED: BENZOCAINE/MENTHOL (CHLORASEPTIC ) LOZENGE MM PRN (12:42)
[2023-02-21] MEDS ORDERED: IBUPROFEN 600 MG TABLET (FP) PO PRN (12:42)
[2023-02-21] MEDS ORDERED: IBUPROFEN 400 MG TABLET (FP) PO PRN (12:42)
[2023-02-21] MEDS ORDERED: AMMONIUM LACTATE 12% LOTION 225 GM BOTTLE TP PRN (12:42)
[2023-02-21] MEDS ORDERED: MAG HYDROX/AL HYDROX/SIMETH 30 ML UNIT-DOSE CUP PO PRN (12:42)
[2023-02-21] MEDS ORDERED: LOPERAMIDE HCL 2 MG CAPSULE PO PRN (12:42)
[2023-02-21] MEDS ORDERED: guaiFENesin 600 MG TABLET.ER (FP) PO PRN (12:42)
[2023-02-21] MEDS ORDERED: BENZONATATE 200 MG CAPSULE PO PRN (12:42)
[2023-02-21] MEDS ORDERED: COLLOIDAL OATMEAL 1 BAR EACH TP PRN (12:42)
[2023-02-21] MEDS ORDERED: MAGNESIUM HYDROX 2400MG/30ML ORAL SUSPENSION 30 ML CUP PO PRN (12:42)
[2023-02-21] MEDS ORDERED: POLYETHYLENE GLYCOL (HEALTHYLAX) 3350 17 GM PACKET PO PRN (12:42)
[2023-02-21] MEDS ORDERED: NICOTINE POLACRILEX 2 MG GUM BUC PRN (12:42)
[2023-02-21] MEDS ORDERED: hydrOXYzine PAMOATE 25 MG CAPSULE (FP) PO PRN (12:42)
[2023-02-21] MEDS ORDERED: ACETAMINOPHEN 325 MG TABLET (FP) PO PRN (12:42)
[2023-02-21] MEDS ORDERED: P-EPHED 60MG/TRIPROLIDI 2.5MG TABLET PO PRN (12:42)
[2023-02-21] MEDS ORDERED: METHOCARBAMOL 500 MG TABLET PO PRN (12:42)
[2023-02-21] MEDS: THIAMINE HCL 100 MG TABLET (FP) PO SCH (21:29)
[2023-02-21] MEDS: MELATONIN 5 MG TABLETS PO SCH (21:29)
[2023-02-22] MEDS: PRENATAL VITAMINS W/ FOLIC ACID TABLET (FP) PO SCH (10:47)
[2023-02-22] MEDS: BICTEGRAV/EMTRICIT/TENOFOV (BIKTARVY) 50-200-25 MG TABLET PO SCH (10:47)
[2023-02-22] MEDS: THIAMINE HCL 100 MG TABLET (FP) PO SCH (21:35)
[2023-02-22] MEDS: MELATONIN 5 MG TABLETS PO SCH (21:35)
[2023-02-23] MEDS: PRENATAL VITAMINS W/ FOLIC ACID TABLET (FP) PO SCH (10:12)
[2023-02-23] MEDS: BICTEGRAV/EMTRICIT/TENOFOV (BIKTARVY) 50-200-25 MG TABLET PO SCH ×2 (10:12→12:33)
[2023-02-23] MEDS: THIAMINE HCL 100 MG TABLET (FP) PO SCH (22:04)
[2023-02-23] MEDS: MELATONIN 5 MG TABLETS PO SCH (22:04)
[2023-02-24] MEDS: BICTEGRAV/EMTRICIT/TENOFOV (BIKTARVY) 50-200-25 MG TABLET PO SCH (07:18)
[2023-02-24] MEDS: PRENATAL VITAMINS W/ FOLIC ACID TABLET (FP) PO SCH (09:53)
[2023-02-24] MEDS: THIAMINE HCL 100 MG TABLET (FP) PO SCH (21:05)
[2023-02-24] MEDS: MELATONIN 5 MG TABLETS PO SCH (21:06)
[2023-02-24] MEDS: AMOXICILLIN 500 MG CAPSULE (FP) PO SCH (21:06)
[2023-02-25] MEDS: BICTEGRAV/EMTRICIT/TENOFOV (BIKTARVY) 50-200-25 MG TABLET PO SCH (07:11)
[2023-02-25] MEDS: PRENATAL VITAMINS W/ FOLIC ACID TABLET (FP) PO PRN (10:13)
[2023-02-25] MEDS: AMOXICILLIN 500 MG CAPSULE (FP) PO SCH ×2 (10:13→21:09)
[2023-02-25] MEDS: MELATONIN 5 MG TABLETS PO SCH (21:09)
[2023-02-25] MEDS: THIAMINE HCL 100 MG TABLET (FP) PO SCH (21:10)
[2023-02-26] MEDS: BICTEGRAV/EMTRICIT/TENOFOV (BIKTARVY) 50-200-25 MG TABLET PO SCH (07:00)
[2023-02-26] MEDS: AMOXICILLIN 500 MG CAPSULE (FP) PO SCH ×2 (10:00→21:23)
[2023-02-26] MEDS: MELATONIN 5 MG TABLETS PO SCH (21:23)
[2023-02-26] MEDS: THIAMINE HCL 100 MG TABLET (FP) PO SCH (21:23)
[2023-02-27] MEDS: BICTEGRAV/EMTRICIT/TENOFOV (BIKTARVY) 50-200-25 MG TABLET PO SCH (07:12)
[2023-02-27] MEDS: AMOXICILLIN 500 MG CAPSULE (FP) PO SCH ×2 (09:48→21:27)
[2023-02-27] MEDS: THIAMINE HCL 100 MG TABLET (FP) PO SCH (21:26)
[2023-02-27] MEDS: MELATONIN 5 MG TABLETS PO SCH (21:26)
[2023-02-28] MEDS: BICTEGRAV/EMTRICIT/TENOFOV (BIKTARVY) 50-200-25 MG TABLET PO SCH (07:06)
[2023-02-28] MEDS: AMOXICILLIN 500 MG CAPSULE (FP) PO SCH ×2 (10:17→21:24)
[2023-02-28] MEDS: MELATONIN 5 MG TABLETS PO SCH (21:25)
[2023-02-28] MEDS: THIAMINE HCL 100 MG TABLET (FP) PO SCH (21:25)
[2023-03-01] MEDS: BICTEGRAV/EMTRICIT/TENOFOV (BIKTARVY) 50-200-25 MG TABLET PO SCH (07:46)
[2023-03-01] MEDS: AMOXICILLIN 500 MG CAPSULE (FP) PO SCH ×2 (10:13→21:22)
[2023-03-01] MEDS: THIAMINE HCL 100 MG TABLET (FP) PO SCH (21:23)
[2023-03-01] MEDS: MELATONIN 5 MG TABLETS PO SCH (21:23)
[2023-03-02] MEDS: BICTEGRAV/EMTRICIT/TENOFOV (BIKTARVY) 50-200-25 MG TABLET PO SCH (07:22)
[2023-03-02] MEDS: AMOXICILLIN 500 MG CAPSULE (FP) PO SCH ×2 (10:25→21:05)
[2023-03-02] MEDS: THIAMINE HCL 100 MG TABLET (FP) PO SCH (21:05)
[2023-03-02] MEDS: MELATONIN 5 MG TABLETS PO SCH (21:05)
[2023-03-03] MEDS: BICTEGRAV/EMTRICIT/TENOFOV (BIKTARVY) 50-200-25 MG TABLET PO SCH (07:09)
[2023-03-03] MEDS: AMOXICILLIN 500 MG CAPSULE (FP) PO SCH (10:00)
[2023-03-03] MEDS: PRENATAL VITAMINS W/ FOLIC ACID TABLET (FP) PO PRN (10:00)
[2023-03-03] MEDS: THIAMINE HCL 100 MG TABLET (FP) PO SCH (21:24)
[2023-03-03] MEDS: MELATONIN 5 MG TABLETS PO SCH (21:25)
[2023-03-04] MEDS: BICTEGRAV/EMTRICIT/TENOFOV (BIKTARVY) 50-200-25 MG TABLET PO SCH (07:06)
[2023-03-04 07:27] VITALS: BP 119/74; PULSE 84; RESP 18; TEMP 96.8
[2023-03-04] MEDS: PRENATAL VITAMINS W/ FOLIC ACID TABLET (FP) PO PRN (09:25)
== END 2023-03-04 09:26 | disposition home or self-care (01) | DRG 772 ==
LOC: YASAS 11:19 → Y3E 13:16
PROVIDERS: ADMIT Allergy & Immunology; ATTEND Psychiatry & Neurology Pain Medicine
PROC: HZ42ZZZ Group Counseling for Substance Abuse Treatment, Cognitive-Behavioral (ICD-10-PCS; principal; 2023-02-21)
DX: F14.20 Cocaine dependence, uncomplicated (principal); F10.20 Alcohol dependence, uncomplicated; F17.210 Nicotine dependence, cigarettes, uncomplicated; F43.10 Post-traumatic stress disorder, unspecified; F32.A Depression, unspecified; Z21 Asymptomatic human immunodeficiency virus [HIV] infection status; K02.9 Dental caries, unspecified; Z62.810 Personal history of physical and sexual abuse in childhood
CPT/HCPCS: 87635